=== PATIENT | female | born 1970 ===

== ENCOUNTER 2024-04-14 12:03 | Emergency (ER) | payer MEDICAID, OTHER, SELFPAY ==
--- NOTE | 2024-04-14 12:28 | ED_ITS ---
HPI - General Adult General Chief complaint: Dental/Oral Stated complaint: Issue w/ tongue ? Time Seen by Provider: 04/14/24 12:36 Source: patient and spanish interpreter/translator Mode of arrival: ambulatory Limitations: language barrier History of Present Illness ED Provider: Miguel Deal [facility] narrative: Patient is a 53-year-old Tristanian-speaking female with history of breast CA on anastrazole, T2DM, HTN, high cholesterol presenting to the emergency department with complaint of dark discoloration noted to posterior aspect of her tongue since this morning. She denies any pain, swelling, difficulty swallowing. Denies fever. MD complaint: tongue discoloration Onset (ago): hour(s) Location: mouth Associated symptoms: denies other symptoms Treatments prior to arrival: none Related Data Allergies Allergy/AdvReac Type Severity Reaction Status Date / Time No Known Allergies Allergy Verified 04/14/24 12:31 Review of Systems Review of Systems: As per HPI. Yes all other systems are reviewed and are negative Constitutional: Constitutional: Reports as per HPI Physical Exam ED Vital Signs: Vital Signs - 24 hr 04/14/24 12:30 Temperature 97.3 F Pulse Rate 54 Respiratory Rate 16 Blood Pressure 135/92 H Pulse Oximetry 96 Oxygen Delivery Method Room Air BMI result Body Mass Index 28.0 Vital signs have been reviewed and appear to be correct. Blood pressure normal. Heart rate normal. Respiratory rate normal. Temperature normal. Oxygen saturation normal. Const General: cooperative, healthy appearing and no acute distress Orientation/consciousness: oriented to person, oriented to place, oriented to time and patient oriented x3 Limitations: no limitations HENMT Head: Yes normocephalic and Yes atraumatic Ears: external ears normal General nose exam: Normal external nose present Face and sinus: Yes face symmetric Mouth: Normal oral and palatal mucosa present, lip normal, oropharynx normal, moist mucous membranes, no audible dysphonia, no drooling, tongue abnormal discolored (dark brown/black posteriorly) and no trismus Throat: Yes uvula midline and No uvular edema Eyes Pupils: Equal, round and reactive pupils present Neck Neck: Yes normal visual inspection and Yes supple Resp Effort & Inspection: normal respiratory effort and able to speak in complete sentences Auscultation: clear to auscultation bilaterally Cardio Rate: regular rate Rhythm: regular rhythm Heart sounds: S1 normal heart sound present and S2 normal heart sound present GI Palpation (GI): Soft to palpation and nontender Auscultation: normoactive bowel sounds General: Yes no CVA tenderness Back/Spine/Pelvis Back: no CVA tenderness Skin General skin exam: elasticity normal and turgor normal Neuro General: oriented to person, oriented to place, oriented to time, patient oriented x3, moves all extremities, no focal motor deficits and CN's II-XI intact bilaterally Cranial nerves: Yes Equal, round and reactive pupils present Cognition (Neuro): normal cognition Extrem General: Yes full ROM, Yes no pedal edema and Yes no calf tenderness Psych Mental Status: mental status grossly normal Affect: normal affect Thought process: Normal thought process present Medical Decision Making Medical Decision Making MDM Narrative: Patient is a 53-year-old Tristanian-speaking female with history of breast CA on a nastrazole, T2DM, HTN, high cholesterol presenting to the emergency department with complaint of dark discoloration noted to posterior aspect of her tongue since this morning. On exam patient is awake, A+Ox3, VS WNL, afebrile, normal neurological exam without focal deficits, physical exam findings as above. Given reported symptoms and physical exam findings, initial differential includes medication side effect of Pepto Bismol. Not consistent with black hairy tongue, melanotic macules, melanoma. Advised patient to assess the area daily and follow up with PCP if discoloration persists. Return precautions discussed. Patient verbalized understanding of and agreement with plan. Evaluation, discussion, return precautions, and plan done via diplomatic interpreter/translator. Differential Diagnosis Differential Diagnoses: The differential diagnosis associated with the presentation includes As per MDM. External Record Review External record reviewed: Inpatient record, Office record and Outpatient record Discharge Plan Discharge Clinical Impression: Medication side effect Patient Disposition: Home, Self-Care Instructions: Bismuth Subsalicylate (By mouth) Additional Instructions: You were evaluated in the emergency department today for discoloration of your tongue which is likely due to using Pepto Bismol last night. Assess the area daily and follow up with your primary care provider if the discoloration persists. Return to the ED if you develop tongue swelling, pain, fever, difficulty swallowing or any other concerning symptoms. Print Language: Tristanian
[2024-04-14 12:30] VITALS: BP 135/92; PULSE 54; RESP 16; TEMP 36.3; O2SAT 96; BMI 28.0
[2024-04-14 12:52] VITALS: BP 135/92; PULSE 54; RESP 16; TEMP 36.3; O2SAT 96
== END 2024-04-14 12:52 | disposition home or self-care (01) ==
PROVIDERS: Emergency Provider Emergency Medicine Emergency Medical Services
DX: K14.9 Disease of tongue, unspecified (principal); T50.905A Adverse effect of unspecified drugs, medicaments and biological substances, initial encounter; Y92.9 Unspecified place or not applicable
CPT/HCPCS: 99282